=== PATIENT | female | born 1990 | race Hispanic/Latino ===

== ENCOUNTER 2016-04-02 22:25 | Inpatient (IN) | payer OTHER ==
[~2016-04-02] VITALS: Ht 149.9 cm; Wt 65.0 kg
[2016-04-02 22:36] VITALS: BP 128/77
[2016-04-02] MEDS ORDERED: PRENTAB9 PO (22:50)
[2016-04-02] MEDS ORDERED: LACTATED RINGER'S 1000 ML IV ONE (23:45)
[2016-04-03] VITALS (59 sets, daily range): BP systolic 93–140; BP diastolic 50–88
[2016-04-03] MEDS: LR 1,000 ML IV SCH ×3 (00:11→23:09)
[2016-04-03] MEDS: VANCOMYCIN HCL 1,000 MG, VIAL MATE ADAPTER 1 EACH in D5W 250 ML IV SCH ×2 (00:11→11:37)
[2016-04-03 00:21] LABS: MEAN CORPUSCULAR HEMOGLOBIN 31.2 pg (27.0-33.0); MEAN CORPUSCULAR HGB CONC 35.3 g/dl (32.0-36.5); MEAN CORPUSCULAR VOLUME 88.5 fl (80.0-96.0); RED CELL DISTRIBUTION WIDTH 12.7 % (11.5-14.5); WHITE BLOOD COUNT 8.5 K/mm3 (4.0-10.0)
[2016-04-03] MEDS ORDERED: FENTANYL 2MCG/ML ROPIVACAINE 0.2% NACL 250 ML CADD As Ordered ONE (04:13)
[2016-04-03] MEDS ORDERED: REFRIGERATOR IV KEYS XX PRN (04:15)
[2016-04-03] MEDS ORDERED: ONDANSETRON 4MG/2ML VIAL (J2405) IV PRN ×3 (04:15→23:45)
[2016-04-03] MEDS ORDERED: LACTATED RINGER'S 1000 ML IV PRN (04:15)
[2016-04-03] MEDS ORDERED: NALOXONE INJ 0.4 MG/1 ML VIAL (J2310) IV PRN ×3 (04:15→22:18)
[2016-04-03] MEDS ORDERED: EPIDURAL/PCA KEYS XX PRN (04:15)
[2016-04-03] MEDS ORDERED: EPIDURAL COMMENT XX SCH (04:15)
[2016-04-03] MEDS ORDERED: FENTANYL/ROPIVACAINE/NACL CADD 250 ML EPIDURAL SCH (04:15)
[2016-04-03] MEDS ORDERED: diphenhydrAMINE INJ 50MG/ML VIAL (J1200) IV PRN ×2 (04:15→23:45)
[2016-04-03] MEDS ORDERED: ePHEDrine SULFATE 25 MG/5 ML(5MG/ML) SYRINGE IV PRN (04:15)
--- NOTE | 2016-04-03 05:08 | HPE ---
DATE OF ADMISSION: 04/02/2016 This lady is a 26-year-old 2, para 0, abortio 1, last menstrual period (LMP) 07/02/2015, estimated date of confinement (EDC) 04/07/2016, in active labor at term. Her risk factors are she has atypical squamous cells of undetermined significance (ASCUS), human papillomavirus (HPV), circumvallate placenta, GDMA1 and group B Streptococcus (GBS) positive. She has past history of spontaneous in 2011. Labs show O positive, HIV negative, hepatitis negative, RPR negative, rubella immune. Varicella nonimmune. Pap shows ASCUS. Urine is negative. Gonorrhea, chlamydia negative. One-hour glucose initially 169. Her 3-hour GTT fasting was 102. Her 1-hour was 203, her 2-hour was 195 and her 3-hour was 160. She is GBS positive, was not monitoring her blood sugars and apparently was diet controlled. Presently she is in distress. She has contractions every 2-4 minutes, moderate intensity. Blood pressure is 128/77, respirations are 18, pulse 61, temperature 98 5. Urine is 1.015, pH 5, leukocyte plus, plus, protein trace. Pelvic examination: Cervix is 1-2 cm, soft, anterior, 50% effaced, bulging membranes with a -2 station. Our plan of management is to hydrate her, active GBS prophylaxis. She has an allergy to penicillin; therefore, on consultation with pharmacy, we are going to use an alternative medication. The patient is requesting epidural at the appropriate interval. Presently category one strip. In summary, term gestation in active labor, GBS positive, and on a vancomycin drip.
[2016-04-03] MEDS: KETOROLAC 30 MG/ML VIAL (J1885) IV SCH ×4 (05:15→23:15)
[2016-04-03] MEDS ORDERED: OXYTOCIN DRIP 30 UNITS in APPROPRIATE DILUENT 1 EA IV SCH (05:15)
--- NOTE | 2016-04-03 12:29 | IPNPDOC ---
Text Note Date of Service The patient was seen on 04/03/16 at 12:22. NOTE assumed care [address] Mera. he admitted the pt overnight and AROM'd her and started her on Vanco for GBS states. At change of shift was 3-4 cm. While I was in a the RN checked and she was 5 cm dilated. NST has been Cat 1 throughout with mod aida and pos accels, rare variables and early' s. She has a circumvalate placenta and GDMA1. A random BS at ~10:00 was 92. She has now received 2 doses of vancomycin and her cx is 6-7/80/-2. On 4 mu/ min pitocin. Plan to incr the pitocin prn to keep her nely regularly. Recheck in 2-3 hrs, sooner prn. Sessions VS,Vanessa, I+O VS, Vanessa, I+O Laboratory Tests 04/02/16 23:52 Red Blood Count 4.11, Mean Corpuscular Volume 88.5, Mean Corpuscular Hemoglobin 31.2, Mean Corpuscular Hemoglobin Concent 35.3, Red Cell Distribution Width 12.7 Vital Signs Date Time Temp Pulse Resp B/P Pulse Ox O2 Delivery O2 Flow Rate FiO2 04/03/16 10:32 62 16 115/72 04/03/16 09:58 99.6 04/03/16 06:27 95 SESSIONS,WOODY Antony MD Apr 03, 2016 12:29
[2016-04-03] MEDS ORDERED: UNASYN 3 GM VIAL As Ordered ONE (16:03)
[2016-04-03] MEDS ORDERED: ACETAMINOPHEN TAB 650MG DOSE (2X325MG) PO ONE (16:45)
--- NOTE | 2016-04-03 16:51 | IPNPDOC ---
Text Note Date of Service The patient was seen on 04/03/16 at 16:45. NOTE Prog note Pit at 6 mu/min. NST Cat 2, a few incidents of recurrent variables and some early decels and decreased variability, but no prolonged decels. Overall, mod variabilityand pos accels. Reg ctx's. Maternal T 100.7 rpt 100.4 Cx AL/100/-1 a/p: Now with maternal temp, intermittent tachycardia. Will Tx now with gent/clinda/tylenol. Recheck at [id number]. D/W RN. Sessions VS,Vanessa, I+O VSVanessa I+O Laboratory Tests 04/02/16 23:52 Red Blood Count 4.11, Mean Corpuscular Volume 88.5, Mean Corpuscular Hemoglobin 31.2, Mean Corpuscular Hemoglobin Concent 35.3, Red Cell Distribution Width 12.7 Vital Signs Date Time Temp Pulse Resp B/P Pulse Ox O2 Delivery O2 Flow Rate FiO2 04/03/16 15:03 99.9 60 16 102/59 04/03/16 06:27 95 SESSIONS,WOODY Antony MD Apr 03, 2016 16:51
[2016-04-03] MEDS ORDERED: CLINDAMYCIN 900 MG in APPROPRIATE DILUENT 1 EA IV SCH (17:00)
[2016-04-03] MEDS ORDERED: GENTAMICIN SULFATE 80 MG in APPROPRIATE DILUENT 1 EA IV SCH (18:00)
--- NOTE | 2016-04-03 20:03 | IPNPDOC ---
Text Note Date of Service The patient was seen on 04/03/16 at 19:57. NOTE Has been pushing for one hour. Approx one hour ago I checked the pt and she was able to push past the small amt cx still present on her left. FHT since then shows mod aida, intermittent tachycardia, early's and variables but no late decels. However at this time I detect very little station change with 1 hr pushing. Narrow pelvis. Also has a posterior asynclitism/NIURKA. Will continue pushing while I do another delivery and re-eval at first opportunity. If no station change at next eval I will rec a Primary . Disc'd this with the RN and the family. Sessions VS,Vanessa, I+O VS, Vanessa I+O Laboratory Tests 04/02/16 23:52 Red Blood Count 4.11, Mean Corpuscular Volume 88.5, Mean Corpuscular Hemoglobin 31.2, Mean Corpuscular Hemoglobin Concent 35.3, Red Cell Distribution Width 12.7 Vital Signs Date Time Temp Pulse Resp B/P Pulse Ox O2 Delivery O2 Flow Rate FiO2 04/03/16 18:02 76 18 118/61 04/03/16 17:04 100.5 04/03/16 06:27 95 SESSIONS,WOODY Antony MD Apr 03, 2016 20:03
[2016-04-03] MEDS ORDERED: BICITRA 30ML SOLN UDC As Ordered ONE (21:35)
--- NOTE | 2016-04-03 21:40 | IPNPDOC ---
Text Note Date of Service The patient was seen on 04/03/16 at 21:35. NOTE prog note ~30 min ago had shown some progress from initial push, however not significant. Wanting to keep trying. I rec'd 30 min further attempts. With eval now there is no further station change. Asynclitism still present. I rec delivery and pt and agree. Risks/benefits all discussed and informed consent obtained. OR team and anesthesia and peds all aware. Dr Castro will be present due to known chorio. Plan on continuing antibiotics (gent/clinda) until 24 hours afebrile. Sessions VS,Vanessa, I+O VSVanessa, I+O Laboratory Tests 04/02/16 23:52 Red Blood Count 4.11, Mean Corpuscular Volume 88.5, Mean Corpuscular Hemoglobin 31.2, Mean Corpuscular Hemoglobin Concent 35.3, Red Cell Distribution Width 12.7 Vital Signs Date Time Temp Pulse Resp B/P Pulse Ox O2 Delivery O2 Flow Rate FiO2 04/03/16 18:02 76 18 118/61 04/03/16 17:04 100.5 04/03/16 06:27 95 SESSIONS,WOODY Antony MD Apr 03, 2016 21:40
[2016-04-03] MEDS ORDERED: BICITRA 30ML SOLN UDC PO ONE (21:45)
[2016-04-03] MEDS ORDERED: MORPHINE PRES-FREE INJ 10 MG/10 ML VIAL (J2274) As Ordered ONE (22:11)
[2016-04-03] MEDS ORDERED: METOCLOPRAMIDE INJ 10MG/2ML VIAL (J2765) IV PRN ×2 (22:18→23:15)
[2016-04-03] MEDS ORDERED: NALBUPHINE HCL 10 MG/ML AMP (J2300) IV PRN (22:18)
[2016-04-03] MEDS ORDERED: OXYTOCIN INJ 10 UNITS/ML VIAL (J2590) As Ordered ONE (22:29)
[2016-04-03] MEDS ORDERED: ONDANSETRON 4MG/2ML VIAL (J2405) As Ordered ONE (22:30)
[2016-04-03] MEDS ORDERED: PHENYLephrine HCL 500 MCG/5 ML (100MCG/ML) SYRINGE (J2370) As Ordered ONE ×2 (22:30→23:11)
[2016-04-03] MEDS ORDERED: ePHEDrine SULFATE 25 MG/5 ML(5MG/ML) SYRINGE As Ordered ONE (22:30)
[2016-04-03] MEDS ORDERED: KETOROLAC 60 MG/2 ML VIAL (J1885) As Ordered ONE (22:30)
[2016-04-03 22:51] LABS: CORD GAS ABE V -5.9; CORD GAS HCO3 V 19.7 MEQ/L; CORD GAS O2 SAT V 63.6 %; CORD GAS PCO2 V 39.5 mmHg; CORD GAS PH V 7.316 UNITS; CORD GAS PO2 V 28.3 mmHg; CORD GAS SBC V 18.9 MEQ/L; CORD GAS TCO2 V 20.9 MEQ/L
[2016-04-03] MEDS ORDERED: MEASLES,MUMPS,RUBELLA VACCINE INJ (MMR-II) (90707) SC SCH (23:15)
[2016-04-03] MEDS ORDERED: RHOGAM 300 MCG (1500 IU) INJ (J2790) IM SCH (23:15)
[2016-04-03] MEDS ORDERED: fentaNYL 100 MCG/2 ML INJECTION (J3010) IV PRN (23:45)
[2016-04-03] MEDS ORDERED: MEPERIDINE INJ 25 MG/ML VIAL (J2175) IV PRN (23:45)
[2016-04-03] MEDS ORDERED: LR 1,000 ML IV SCH (23:45)
[2016-04-03] MEDS ORDERED: KETOROLAC 30 MG/ML VIAL (J1885) IV PRN (23:45)
[2016-04-04 00:24] VITALS: BP 127/76
[2016-04-04 00:56] VITALS: BP 140/80
[2016-04-04] MEDS: CLINDAMYCIN 900 MG in APPROPRIATE DILUENT 1 EA IV SCH ×3 (01:17→17:19)
[2016-04-04] MEDS: GENTAMICIN SULFATE 80 MG in APPROPRIATE DILUENT 1 EA IV SCH ×3 (02:00→19:29)
[2016-04-04 02:05] VITALS: BP 132/84
[2016-04-04] MEDS: KETOROLAC 30 MG/ML VIAL (J1885) IV SCH ×4 (05:15→23:21)
[2016-04-04 06:01] VITALS: BP 113/70
--- NOTE | 2016-04-04 06:34 | IPNPDOC ---
Text Note Date of Service The patient was seen on 04/04/16 at 06:30. NOTE Prog note S/P 8 hrs ago for arrest of descent. Has been afebrile since delivery , transfer to the floor. No tachypnea/tachycardia. No SOB/CP/LP. Going to see their baby soon, it is in the NICU. Pumping. Hawley a little dizzy with first attempt to sit up, but very little VB. [employer] with bandage in place no strike through LE no CCE a/p: Doing well. RN to take her to NICU now. Cont IV abx until 24 hrs afebrile. Sessions Vanessa BATES, I+O VSVanessa I+O Vital Signs Date Time Temp Pulse Resp B/P Pulse Ox O2 Delivery O2 Flow Rate FiO2 04/04/16 06:01 97.5 61 16 113/70 96 Room Air I&O- Last 24 Hours up to 6 AM 04/04/16 06:00 Intake Total 3490 ml Output Total 4100 ml Balance -610 ml SESSIONSWOODY MD Apr 04, 2016 06:34
[2016-04-04] MEDS: LR 1,000 ML IV SCH (07:09)
[2016-04-04 07:26] LABS: MEAN CORPUSCULAR HEMOGLOBIN 31.6 pg (27.0-33.0); MEAN CORPUSCULAR HGB CONC 35.5 g/dl (32.0-36.5); MEAN CORPUSCULAR VOLUME 89.1 fl (80.0-96.0); RED CELL DISTRIBUTION WIDTH 12.8 % (11.5-14.5); WHITE BLOOD COUNT 16.9 K/mm3 (4.0-10.0)
[2016-04-04] MEDS: PRENATAL VITAMIN TAB PO SCH (08:53)
[2016-04-04] MEDS: PERCOCET 5MG/325MG TAB PO PRN ×2 (09:19→22:11)
[2016-04-04] MEDS: DOCUSATE SODIUM 100 MG CAP PO SCH ×2 (10:39→22:12)
--- NOTE | 2016-04-04 13:38 | RO ---
DATE OF PROCEDURE: 04/03/2016 PREPROCEDURE DIAGNOSES: 1. Arrest of descent after 3 hours of pushing. 2. Chorioamnionitis. POSTPROCEDURE DIAGNOSES: 1. Arrest of descent after 3 hours of pushing. 2. Chorioamnionitis. PROCEDURE: Primary delivery. SURGEON: Dr. Sin Ramon. PHOTOENGRAVER: Dr. Trent Smith. ANESTHESIA: Failed epidural in the operating room, but actually successful spinal. ESTIMATED BLOOD LOSS: 500 mL. FLUID REPLACED: Lactated ringers 1000. SPECIMENS: Placenta. INDICATION: Patient was placed on Pitocin and made it to complete complete plus 2 station, however, after 3 hours of pushing, only managed to move the slightly and her pelvis was also not adequate to attempt to vacuum delivery. There was also a very likely posterior asynclitism. After discussing all the options, the patient decided upon my recommendation to undergo a primary delivery. Informed consent was obtained. The patient was taken to the operating room. DESCRIPTION OF OPERATION: Patient was taken to the operating room where her epidural was dosed, however, found to be inadequate. This was removed, a spinal anesthetic was performed. She was placed in the dorsal supine position with a leftward tilt. Post spinal heart tones were 180s. A Robles catheter was placed. The patient's legs were slightly frogged just in case of the possible need for a vaginal hand due to the deep arrest status. She was then prepped and draped in normal sterile fashion. Her skin was tested and found to be numb and appropriate to proceed. Pfannenstiel skin incision was carried down to the layer of the fascia which was nicked in the midline. I extended the extent of the skin incision bilaterally. Delaney clamps were placed superiorly and the fascia was tented up, the underlying rectus muscles were dissected off sharply. This was repeated inferiorly without difficulty. The rectus muscles were in the midline. The peritoneum was identified and entered bluntly with surgeon's digit and a stretch maneuver easily created an adequate peritoneal window. Bladder blade was placed. Bladder flap was created without difficulty and a low transverse uterine incision was performed. This was stretched to adequacy and amniotomy revealed clear fluid. 's head was slowly brought cephalad as the suction of the deep arrest in the pelvis was addressed. Once I got the 's head in the correct flexed position above the pubic bone, fundal pressure helped to easily deliver the baby. Infant was in good shape with 9 and 9. Initial weight was found to be 3718 grams, 8 pounds 3 ounces, male. Cord was clamped times two and cut and a vigorous infant was handed off to the waiting resuscitation team. Cord blood was obtained as well as cord venous gas. Cord arterial gas was not able to be retrieved. Placenta was then delivered with traction and fundal massage as Pitocin was going in wide open. The uterus was then delivered through the abdominal incision wrapped in a warm sponge, retracted cephalad and a bladder blade placed. A uterine incision was then closed from left to right with a running suture of #0 Vicryl. A suture of #0 Monocryl was used to imbricate. Hemostasis was obtained. Irrigation was performed behind the uterus. The uterus was returned to its anatomical state after confirming the presence of normal fallopian tubes and ovaries bilaterally. Both paracolic gutters were inspected and found to be not containing an clot. The uterine incision was inspected and found to be hemostatic and the fascia was then closed after reapproximating the peritoneal edges. #0 Vicryl was used on the fascia from left to right. This was done without difficulty. Of note just prior to fascia closure, the rectus bellies were inspected and found to be hemostatic as well. Subcutaneous tissue was copiously irrigated and made to be hemostatic. A #2-0 Vicryl was used to reapproximate this potential space. Skin was closed with running subcuticular #4-0 Monocryl from left to right. Steri-Strips were placed as well as a pressure dressing. Fundal massage in the operating room generated a clot of about 100 mL. Total estimated blood loss was 500 mL for the case. Patient was transferred to the postanesthesia care unit in stable condition. All counts are correct times two including sponge, needle and instruments. FREDERICKD
[2016-04-04 18:15] VITALS: BP 119/79
[2016-04-04 22:23] VITALS: BP 106/63
[2016-04-05] MEDS: CLINDAMYCIN 900 MG in APPROPRIATE DILUENT 1 EA IV SCH (01:00)
[2016-04-05] MEDS: PERCOCET 5MG/325MG TAB PO PRN ×2 (03:37→14:08)
[2016-04-05 06:01] VITALS: BP 115/69
[2016-04-05 07:43] LABS: BASO % 0.1 % (0.0-1.0); EOS # 0.1 K/mm3 (0.0-0.50); EOS % 1.1 % (0.0-3.0); LARGE UNSTAINED CELL # 0.2 K/mm3 (0.0-0.4); LARGE UNSTAINED CELL % 1.3 % (0.0-4.0); LYMPH # 1.6 K/mm3 (1.5-6.5); LYMPH % 11.7 % (24.0-44.0); MEAN CORPUSCULAR HEMOGLOBIN 30.3 pg (27.0-33.0); MEAN CORPUSCULAR HGB CONC 33.5 g/dl (32.0-36.5); MEAN CORPUSCULAR VOLUME 90.6 fl (80.0-96.0); MONO # 0.4 K/mm3 (0.0-0.8); NEUTROPHILS # 11.1 K/mm3 (1.8-7.7); NEUTROPHILS % 82.8 % (36.0-66.0); RED CELL DISTRIBUTION WIDTH 12.9 % (11.5-14.5); WHITE BLOOD COUNT 13.4 K/mm3 (4.0-10.0)
--- NOTE | 2016-04-05 07:45 | DSES ---
DATE OF ADMISSION: 04/02/2016 DATE OF DISCHARGE: 04/05/2016 This is a 20-year-old, 2, now para 1, admitted in active labor, had a primary section because of arrest of descent and chorioamnionitis, live male weighing 8 pounds 3 ounces, of 9 and 9 at one and five minutes, respectively. Venous pH was 7.31, base excess -5.9. Admitting hemoglobin was 12.8, hematocrit 36.4, platelets were 108. White count was 8.5. Discharge hemoglobin 10.9, hematocrit 30.9, platelets were 84 and her white count was 16.3. On discharge, her blood pressure 115/69, respirations 18, pulse 75, temperature is 97.2. We discussed phlebitis, cystitis, mastitis, endometritis and cellulitis, diet, pain management, perineal, breast and wound care. Patient was given her medications on discharge, planning for 2-week incision check, 6-week check. Baby is still in the intensive care unit (NICU) because of chorioamnionitis, but is doing well otherwise. On discharge, patient is normocephalic, atraumatic. Neck: Full range of motion. Pupils equal and reactive to light. Distal pulses are symmetric. No evidence of deep venous thrombosis (DVT), pulmonary embolism (PE) or superficial phlebitis. Chest is clear bilaterally bases. No wheezes or rhonchi. No costovertebral angle (CVA) tenderness. Abdomen is soft, Four quadrant bowel sounds are noted. Incision clean and dry. No rashes, lesions or pruritus. No arthralgia, myalgia. No complaints of cough, wheezes, shortness of breath or dyspnea on exertion. No chest pain. No bleeding. Neuro complete. No incontinence, urgency. No nausea, vomiting, diarrhea or constipation. No tobacco or alcohol. No drug abuse. . There is no domestic violence. In summary, we have a term gestation, admitted in active labor, delivered by primary section because of arrest of descent and chorioamnionitis. Patient is planning on staying in the hospital while baby is still in the NICU. Patient will be made a boarder status.
[2016-04-05 07:48] LABS: PLATELET COUNT, AUTOMATED 91 k/mm3 (150-450)
[2016-04-05] MEDS: PRENATAL VITAMIN TAB PO SCH (09:00)
[2016-04-05] MEDS: IBUPROFEN 800 MG TAB PO SCH ×2 (09:36→15:24)
[2016-04-05] MEDS: DOCUSATE SODIUM 100 MG CAP PO SCH (09:36)
[2016-04-05] MEDS ORDERED: COLA100C PO (11:41)
[2016-04-05] MEDS ORDERED: OXYC1TAB23 PO ×2 (11:41→11:45)
[2016-04-05] MEDS ORDERED: MOTR200T40 PO (11:45)
== END 2016-04-05 15:30 | disposition home or self-care (01) | DRG 765 ==
LOC: M LDO 22:25 → M LDI 23:27 → M OBS 04-04 00:16
PROVIDERS: ADMIT Obstetrics & Gynecology; ATTEND Obstetrics & Gynecology
PROC: 10D00Z1 Extraction of Products of Conception, Low, Open Approach (ICD-10-PCS; principal; 2016-04-03 22:03)
DX: O99.824 Streptococcus B carrier state complicating childbirth (principal); O41.1230 Chorioamnionitis, third trimester, not applicable or unspecified; Z3A.39 39 weeks gestation of pregnancy; O24.429 Gestational diabetes mellitus in childbirth, unspecified control; O32.4XX0 Maternal care for high head at term, not applicable or unspecified; O43.113 Circumvallate placenta, third trimester; O65.5 Obstructed labor due to abnormality of maternal pelvic organs; Z37.0 Single live birth